=== PATIENT | female | born 1995 | race American Indian/Alaskan Native ===

== ENCOUNTER 2016-08-07 20:37 | Emergency (ER) | payer BC ==
--- NOTE | 2016-08-08 00:01 | Emergency Department Report ---
HPI - General Chief Complaint: Pain General Time Seen by Provider: 08/07/16 23:38 - HPI HPI: The patient is a 20-year-old female who presents for evaluation of chest pain. The patient reports right lower chest and rib pain since 11 PM last night, 12 hours prior to my evaluation, to 9/10 in severity, sharp in quality, exacerbated with use of the right arm. The patient denies fever, neck pain, parasthesias, dyspnea, cough, hemoptysis, palpitations, dizziness, syncope, unilateral leg swelling, calf muscle pain. Patient also denies cocaine or other stimulant use, oral contraception use, history of DVT or PE, recent immobilization, or history of cancer. ED Past Medical Hx - Past Medical History Previous Medical History?: No - Surgical History Past Surgical History?: No - Social History Smoking Status: Never Smoker Substance Use Type: None - Medications Home Medications: Home Medications Medication Instructions Recorded Confirmed Last Taken Type Cephalexin [Keflex] 500 mg PO Q6H #28 capsule 12/01/13 Unknown Rx Vit-Fe Fumar-FA [ 1 each PO QDAY #90 tablet 12/01/13 Unknown Rx Vitamin] Promethazine [Phenergan] 25 mg PO Q6H PRN #30 tablet 12/01/13 Unknown Rx metroNIDAZOLE 0.75% [Metrogel 1 applicatio TP BID #10 tube 12/01/13 Unknown Rx 0.75%] Ibuprofen [Motrin] 800 mg PO Q8HR PRN #15 tablet 08/08/16 Unknown Rx traMADol [Ultram 50 MG tab] 50 mg PO Q6HR PRN #15 tablet 08/08/16 Unknown Rx ED Review of Systems ROS: Stated complaint: RIB PAIN RT SIDE Other details as noted in HPI Constitutional: denies: fever ENT: denies: throat or neck pain Respiratory: denies: cough, shortness of breath Cardiovascular: reports chest pain Endocrine: denies unexplained weight loss or gain Gastrointestinal: denies: abdominal pain, nausea Genitourinary: denies: dysuria Musculoskeletal: denies: leg swelling Skin: denies: rash Neurological: denies: headache Hematological/Lymphatic: denies: easy bleeding or easy bruising Psych: denies sadness or hopelessness Physical Exam - Physical Exam Vital Signs: Vital Signs 08/07/16 21:45 Temperature 98.4 F Pulse Rate 84 Respiratory 16 Rate Blood Pressure 123/73 O2 Sat by Pulse 98 Oximetry Physical Exam: General: well-nourished, well-developed, no acute distress Head: Normocephalic, atraumatic Eyes: normal sclera ENT: Mucous membranes are pink and moist Neck: trachea midline, neck supple, No neck stiffness, no cervical adenopathy Respiratory: Breath sounds equal bilaterally, no wheezing, rales, or rhonchi Cardio: S1 and S2 present, no murmurs, rubs, gallops, capillary refill is brisk Abdomen: Normoactive bowel sounds, soft abdomen, no tenderness including to the right upper quadrant Chest WALL/Back: tenderness to palpation of the anterior right chest wall at the anterior axillary line and mid axillary line intercostal spaces 7-9, no CVA tenderness with percussion Musc: No pitting edema Skin: No rash Neuro: no facial drooping, normal speech Psych: Normal affect ED Course Vital Signs 08/07/16 21:45 Temperature 98.4 F Pulse Rate 84 Respiratory 16 Rate Blood Pressure 123/73 O2 Sat by Pulse 98 Oximetry ED Medical Decision Making - Medical Decision Making The patient was seen and examined by myself. The patient is placed on a cardiac rehabilitation program director and continuous pulse ox. On initial evaluation, the patient was found to be in no distress. Evaluation orders were placed. The patient is given a tablet of Tylenol 3 for pain. X-ray of the ribs and chest is negative for acute fracture, pneumothorax, or pneumomediastinum. Exam findings are consistent with intercostal pain as her pain is reproduced with palpation of intercostal spaces of the lower ribs at the anterior axillary line. The patient was reevaluated and reported that their symptoms were markedly improved. The patient is stable for discharge with outpatient follow-up. The patient is given follow-up and return instructions. The patient expressed understanding and agreed with the plan. The patient is discharged in stable condition. Critical care attestation.: If time is entered above; I have spent that time in minutes in the direct care of this critically ill patient, excluding procedure time. ED Disposition Clinical Impression: Acute chest wall pain, Rib pain on right side Disposition: DISCHARGED TO HOME OR SELFCARE Is pt being admited?: No Does the pt Need Aspirin: No Condition: Stable Instructions: Costochondritis (ED), Thoracic Pain (ED) Prescriptions: Ibuprofen [Motrin] 800 mg PO Q8HR PRN #15 tablet PRN Reason: Pain traMADol [Ultram 50 MG tab] 50 mg PO Q6HR PRN #15 tablet PRN Reason: Pain Referrals: PRIMARY CARE, [Primary Care Provider] - 3-5 Days Time of Disposition: 23:55
[2016-08-08] MEDS ORDERED: MOTRIN PO ONE (00:45)
[2016-08-08] MEDS ORDERED: TYLENOL #3 PO ONE (00:45)
[2016-08-08 02:43] VITALS: BP 107/69
--- NOTE | 2016-08-08 08:30 | XRay Report ---
Right rib series, 2 views. History:: Chest pain on inspiration. Findings: There no fractures or other rib abnormalities. There is no evidence of pneumothorax or pleural fluid collection. Impression: Normal study.
== END 2016-08-08 02:00 | disposition home or self-care (01) ==
LOC: ED 20:37
DX: R07.89 Other chest pain (principal)
CPT/HCPCS: 81025; 99284